=== PATIENT | female | born 2000 | race Caucasian/White ===

== ENCOUNTER 2023-06-24 20:18 | Emergency (ER) | payer OTHER, SELFPAY ==
[2023-06-24 20:21] VITALS: BP 126/82; PULSE 107; TEMP 37.6; O2SAT 96; BMI 21.0
--- NOTE | 2023-06-24 20:29 | ED.URI1 ---
HPI - URI/Sore Throat General Chief Complaint: Upper Respiratory Infection Stated Complaint: EARACHE Time Seen by Provider: 06/24/23 20:29 Source: patient Limitations: no limitations History of Present Illness HPI Narrative: 22-year-old female presents with a cough, sinus congestion and left ear pain for the past 3 days. She states that she has had left ear pain for months and her family doctor has checked her out with no findings. She states that she has had ringing in both ears for the past couple days. Denies fever, sore throat, SOB or CP Related Data Home Medications Medication Instructions Recorded Confirmed No Known Home Medications 06/24/23 06/24/23 Allergies Allergy/AdvReac Type Severity Reaction Status Date / Time codeine Allergy Unknown Verified 06/24/23 20:25 Review of Systems ROS Status of ROS 10 or more systems reviewed and unremarkable except as noted in history and below [facility] Social History Smoking status: Never smoker Exam Narrative Exam Narrative: General: alert, no distress, talking in full an complete sentences skin: warm, dry, intact head: normocephalic, atraumatic eyes: PERRLA, EOMI, normal conjunctiva ears: TMs clear and intact, no drainage, external ear normal nose: nares patent throat: oropharynx no erythema or exudate, no stridor, uvula midline neck: supple, trachea midline cardiac: +S1/S1. no murmur respiratory: lungs CTA, non-labored, no wheezing, no retractions extremities: FROM x 4, strength +5/5 neuro: A&Ox3 psych: appropriate mood and affect, cooperative Constitutional Vital Signs, click to edit/add: Last Vital Signs Temp 99.7 F 06/24/23 20:21 Pulse 107 H 06/24/23 20:21 BP 126/82 06/24/23 20:21 Pulse Ox 96 06/24/23 20:21 Course Vital Signs Vital signs: Vital Signs Temperature 99.7 F 06/24/23 20:21 Pulse Rate 107 H 06/24/23 20:21 Blood Pressure 126/82 06/24/23 20:21 Pulse Oximetry 96 06/24/23 20:21 Temperature 99.7 F 06/24/23 20:21 Pulse Rate 107 H 06/24/23 20:21 Blood Pressure 126/82 06/24/23 20:21 Pulse Oximetry 96 06/24/23 20:21 MDM - URI/Sore Throat MDM Narrative Medical decision making narrative: I offered to test for COVID and she declines. Likely viral and can use symptomatic medications [id number]. F/u with PCP. afebrile, not tachypneic, not tachycardic, tolerating p.o., not hypoxic, non toxic appearing and ambulating at baseline and hemodynamically stable to be d/c. answered all questions. pt in agreement with tx. educated when to return to ER. Discharge Plan Discharge Chief Complaint: Upper Respiratory Infection Clinical Impression: Viral upper respiratory infection Patient Disposition: Home, Self-Care Time of Disposition Decision: 20:29 Condition: Good Mode of Transportation: Private Vehicle Prescriptions / Home Meds: No Action No Known Home Medications Instructions: Viral Syndrome (ED) Stand Alone Forms: Portal Instructions Referrals: [facility] [Primary Care Provider] - 1 week Discharge Date/Time: 06/24/23 20:50
--- NOTE | 2023-06-24 20:45 | PC.NURSE ---
pt presents to ED c/o headache, nausea, no appetite and everything tastes weird , diarrhea, and left ear pain for last 3 days. patient states she has some kids at home that are sick as well. motrin taken this morning
== END 2023-06-24 20:50 | disposition home or self-care (01) ==
PROVIDERS: Emergency Provider Emergency Medicine
DX: J06.9 Acute upper respiratory infection, unspecified (principal)
CPT/HCPCS: 99281